=== PATIENT | female | born 1970 | race African-American/Black ===

== ENCOUNTER 2016-09-02 14:11 | Emergency (ER) | payer MEDICAID, OTHER ==
[~2016-09-02] VITALS: Ht 167.6 cm; Wt 81.6 kg
[2016-09-02 15:10] LABS: Basophils # (auto) 0 uL; Basophils % (auto) 0.4 % (0.0-2.0); Eosinophils # (auto) 0.2 uL; Eosinophils % (auto) 2.3 % (0.0-7.0); Hemoglobin 12.6 g/dL (12.2-16.2); Lymphocytes # (auto) 2.6 uL; Lymphocytes % (auto) 31.5 % (10.0-50.0); Mean Corpuscular Hemoglobin 31.7 pg (28.0-32.0); Mean Corpuscular Hgb Conc. 33.2 g/dL (32.0-36.0); Mean Corpuscular Volume 95.5 fL (80.0-100.0); Monocytes # (auto) 0.4 uL; Monocytes % (auto) 4.9 % (0.0-12.0); Neutrophils % (auto) 60.9 % (37.0-80.0); Platelet Count (auto) 383 10^3/uL (140-450); White Blood Cell 8.1 10^3/uL (4.4-10.8)
[2016-09-02 15:21] LABS: Albumin 3.9 g/dL (3.4-5.0); BUN/Creatinine Ratio 8.2; Calcium 8.6 mg/dL (8.5-10.1); Potassium 3.8 mmol/L (3.5-5.1)
[2016-09-02 15:23] LABS: Bilirubin, Total 0.3 mg/dL (0.2-1.0); Total Protein 7.4 g/dL (6.4-8.2)
[2016-09-02] MEDS ORDERED: SODIUM CHLORIDE 0.9% 1,000 ML IVB ONE (16:46)
[2016-09-02] MEDS ORDERED: METOCLOPRAMIDE HCL 5MG/ml INJ 2ml VIAL IV ONE (17:00)
[2016-09-02] MEDS ORDERED: KETOROLAC TROMETH 30 MG/ML 1ML VIAL IV ONE (17:00)
[2016-09-02 17:39] LABS: Amylase 59 U/L (25-115)
[2016-09-02 17:40] LABS: Urine Bilirubin Negative (Negative); Urine Blood Negative /uL (Negative); Urine Color Yellow (Yellow); Urine Glucose Normal (Normal); Urine Ketone TRACE (Negative); Urine Nitrite Negative (Negative); Urine RBC 1 /hpf (0 - 4); Urine Squamous Epithelial Cell FEW /hpf (<5); Urine Urobilinogen Normal (Negative); Urine pH 6.5 (5.0-8.0)
[2016-09-02] MEDS ORDERED: MORPHINE SULF INJ 2 MG/ML SYRINGE 1ML IV ONE (20:30)
[2016-09-02 21:54] VITALS: BP 125/85
== END 2016-09-02 21:55 | disposition home or self-care (01) ==
LOC: EDBD 14:11 → ER 14:26
DX: R10.32 Left lower quadrant pain (principal); Z96.89 Presence of other specified functional implants
CPT/HCPCS: 36415; 74176; 76856; 80053; 81001; 81025; 82150; 83690; 85025; 93005; 96361; 96374; 96375; 99285; J1885; J2270; J2765; J7030